=== PATIENT | female | born 1970 | race Hispanic/Latino ===

== ENCOUNTER 2021-07-13 21:20 | Emergency (ER) | payer SELFPAY ==
[~2021-07-13] VITALS: Ht 160 cm; Wt 77.1 kg
[2021-07-13 22:14] LABS: CLARITY,URINE CLEAR (CLEAR); COLOR,URINE YELLOW (YELLOW); KETONES,URINE NEGATIVE (NEGATIVE); LEUKOCYTE ESTERASE ,URINE MODERATE (NEGATIVE); NITRITE,URINE NEGATIVE (NEGATIVE); PROTEIN,URINE DIPSTICK NEGATIVE (NEGATIVE); URINE UROBILINOGEN 0.2 mg/dL (0.2 - 1)
[2021-07-13 22:17] LABS: BACTERIA,URINE FEW /HPF; EPITHELIAL CELLS,URINE FEW /LPF
[2021-07-13] MEDS ORDERED: CIPRO500 MG PO (23:37)
[2021-07-13] MEDS ORDERED: ULTRAM50 MG PO (23:37)
== END 2021-07-13 23:47 | disposition home or self-care (01) ==
LOC: ER 22:32
DX: R10.30 Lower abdominal pain, unspecified (principal); R16.1 Splenomegaly, not elsewhere classified
CPT/HCPCS: 74176; 81001; 81025; 99283